=== PATIENT | female | born 1960 | race Caucasian/White ===

== ENCOUNTER 2016-05-13 22:53 | Emergency (ER) | payer OTHER ==
[2016-05-13 23:03] VITALS: BP 130/80; PULSE 87; TEMP 98.4; BMI 26.6
[2016-05-14] MEDS ORDERED: ACETAMINOPHEN 325 MG TABLET (FP) ONE (00:06)
[2016-05-14] MEDS ORDERED: ACETAMINOPHEN 325 MG TABLET (FP) PO ONE (00:06)
--- NOTE | 2016-05-14 00:08 | PDOC ---
History of Present Illness - General Chief Complaint: Alcohol intoxication Stated Complaint: BIBA, INTOX Time Seen by Provider: 05/13/16 23:05 - History of Present Illness Initial Comments: This 55-year-old woman who denies previous medical problems is brought in by ambulance from a local restaurant with evidence of acute alcohol intoxication. Patient was a customer in the restaurant; she apparently arrived alone and became very inebriated. Staff at the restaurant called 911 and the police who responded called EMS for ER evaluation. Patient is awake and oriented; she has no complaints on presentation. Patient denies previous past medical history except depression No known ALLERGIES Medications: Celexa; Wellbutrin Past History - Past Medical History Allergies/Adverse Reactions: Allergies Allergy/AdvReac Type Severity Reaction Status Date / Time No Known Allergies Allergy Unverified 05/13/16 23:03 Home Medications: Ambulatory Orders NK [No Known Home Medication] 05/13/16 Other medical history: UNKNOWN - Psycho/Social/Smoking Cessation Hx Anxiety: No Suicidal Ideation: No Smoking History: Unknown if ever smoked Have you smoked in the past 12 months: No Number of Cigarettes Smoked Daily: 0 Information on smoking cessation initiated: No Hx Alcohol Use: No Drug/Substance Use Hx: No Substance Use Type: Alcohol Review of Systems - Review of Systems Able to Perform ROS?: Yes Comments:: 12 point review of systems is negative except for what is noted in the history of present illness *Physical Exam - Vital Signs Last Vital Signs Temp Pulse Resp BP Pulse Ox 98.4 F 87 14 130/80 93 L 05/13/16 22:55 05/13/16 22:55 05/13/16 22:55 05/13/16 22:55 05/13/16 22:55 - Physical Exam Comments: GENERAL:adult female,alcohol on breath;cooperative,responsive and oriented; speech mildly slurred HEAD: Normal with no signs of trauma. EYES: PERRLA, EOMI, sclera anicteric, conjunctiva clear. ENT: Ears normal, nares patent, oropharynx clear without exudates. Dry mucous membranes. NECK: Normal range of motion, supple without lymphadenopathy, JVD, or masses. LUNGS: Breath sounds equal, clear to auscultation bilaterally. No wheezes, and no crackles. HEART:Regular rate and rhythm, normal S1 and S2 without murmur, rub or gallop. ABDOMEN:.normal bowel sounds No guarding,tenderness or rebound.No masses No distention. EXTREMITIES: Normal range of motion, no edema. No clubbing or cyanosis. No erythema, or tenderness. NEUROLOGICAL: Cranial nerves II through XII grossly intact. Normal speech. No focal neurological deficits. MUSCULOSKELETAL: Back non-tender to palpation, no CVA tenderness SKIN: Warm, Dry, normal turgor, no rashes or lesions noted. Medical Decision Making - Medical Decision Making Patient admitted to be visiting from [facility] and to be staying with friends in the area. Contact information for the friends provided by the patient and friend was called. Friends will be arriving to drive patient home 05/14/16 00:37 Patient's friends with whom she is staying arrived and patient will be discharged in their care. patient had apparently told the friends that she was going for a walk,then proceeded to the restaurant alone. They had been trying to locate her. Patient was awake and alert, ambulating without significant imbalance upon discharge from the ER. *DC/Admit/Observation/Transfer Diagnosis at time of Disposition: Alcohol intoxication Qualifiers: Complication of substance-induced condition: uncomplicated Qualified Code(s): F10.120 - Alcohol abuse with intoxication, uncomplicated - Discharge Dispostion Disposition: HOME Condition at time of disposition: Stable - Patient Instructions Printed Discharge Instructions: DI for Alcohol Abuse Additional Instructions: rest drink plenty of water Tylenol as needed for headache return to ER if you have worsening headache or persistent vomiting
== END 2016-05-14 00:37 | disposition home or self-care (01) ==
LOC: FER 22:53
DX: F10.120 Alcohol abuse with intoxication, uncomplicated (principal)
CPT/HCPCS: 99283-25